=== PATIENT | male | born 1970 | race African-American/Black ===

== ENCOUNTER 2017-03-18 19:15 | Inpatient (IN) | payer OTHER ==
[~2017-03-18] VITALS: Ht 182.9 cm; Wt 102.8 kg
--- NOTE | ~2017-03-18 | 2DMMODE ---
[facility] [address] [place] [address] 2 D/M-MODE ECHOCARDIOGRAM Name: HALEY SCHILLING Room #: 209-P [facility] IN M.R.#: [id number] Admission: 03/18/17 Attend Phys: Luis Alfredo Horn, Discharge: Date of : 72 Date of Service: 03/19/17 0942 Report #: [id number] THIS REPORT FOR: //name// APPROVED REPORT Study performed: 03/19/2017 08:12:03 EXAM: Comprehensive 2D, Doppler, and color-flow Echocardiogram Patient Location: Echo lab Room #: 209 Status: routine BSA: 2.25 HR: 78 bpm BP: 128/79 mmHg Other Information Study Quality: Good Indications Diabetes CAD Hx stent, HLD, 2D Dimensions RVDd: 34.13 mm LVEF(%): 74.50 (>50%) IVSd: 12.07 (7-11mm) LVOT Diam: 20.67 (18-24mm) LVDd: 47.12 mm PWd: 10.74 (7-11mm) Ascending Ao: 27.53 (22-36mm) LVDs: 26.69 (25-40mm) Aortic Root: 34.14 mm Moreno's LVEF: 74.50 % Volumes Left Atrial Volume (Systole) Single Plane 4CH: 31.84 mL Single Plane 2CH: 58.67 mL LA ESV Index: 21.00 mL/m2 Aortic Valve AoV Peak Benjamín.: 1.52 m/s AO Peak Gr.: 9.20 mmHg LVOT Max P.80 mmHg LVOT Max V: 1.30 m/s EDDIE Vmax: 2.88 cm2 Mitral Valve E/A Ratio: 1.3 [facility] [place] [address] 2 D/M-MODE ECHOCARDIOGRAM Name: DEREK SCHILLINGOND Room #: 209-P [facility] .R.#: [id number] Admission: 03/18/17 Attend Phys: Luis Alfredo Horn, Discharge: Date of : 72 Date of Service: 03/19/17 0942 Report #: [id number] MV Decel. Time: 204.33 ms MV E Max Benjamín.: 0.96 m/s MV A Benjamín.: 0.73 m/s MV PHT: 59.25 ms IVRT: 55.36 ms Pulmonary Valve PV Peak Benjamín.: 1.11 m/s PV Peak Gr.: 4.94 mmHg Pulmonary Vein P Vein S: 0.41 m/s P Vein D: 0.51 m/s P Vein S/D Ratio: 0.80 Tricuspid Valve TR Peak Benjamín.: 1.37 m/s RAP Estimate: 5.00 mmHg TR Peak Gr.: 7.51 mmHg PA Pressure: 13.00 mmHg Left Ventricle Left ventricle is grossly normal size. There is normal LV segmental wall motion. There is normal left ventricular wall thickness. The left ventricular systolic function is normal. LVEF is 60-65%. The left ventricular diastolic function is normal. Right Ventricle The right ventricle is normal size. The right ventricular systolic function is normal. Atria The left atrium size is normal. The right atrium size is normal. Aortic Valve The aortic valve is normal in structure. No aortic regurgitation is present. There is no aortic valvular stenosis. Mitral Valve The mitral valve is normal in structure. Trace mitral regurgitation. No evidence of mitral valve stenosis. Tricuspid Valve The tricuspid valve is normal in structure. Trace tricuspid regurgitation.Estimated PAP 13 mmHg. Pulmonic Valve [facility] [address] [place] [address] 2 D/M-MODE ECHOCARDIOGRAM Name: HALEY SCHILLING Room #: 209-P [facility] M.R.#: [id number] Admission: 03/18/17 Attend Phys: Luis Alfredo Horn, Discharge: Date of : 72 Date of Service: 03/19/17 0942 Report #: [id number] The pulmonary valve is normal in structure. Trace pulmonic regurgitation. Great Vessels The aortic root is normal in size. IVC is normal in size and collapses >50% with inspiration. Pericardium There is no pericardial effusion. <Conclusion> 1. Normal echocardiogram with Doppler <ELECTRONICALLY SIGNED> By: Christopher Ng MD, FACC 03/19/17941 1 1 Christopher Ng MD, [facility] /INF
--- NOTE | ~2017-03-18 | EKG ---
[address] [place] [address] ELECTROCARDIOGRAM REPORT Name: HALEY SCHILLING Room #: 209-P [facility] IN M.R.#: [id number] Admission: 03/18/17 Attend Phys: Luis Alfredo Horn DO Discharge: Date of : 72 Report #: [id number] THIS REPORT FOR: //name// [facility] ED Test Date: 2017-03-18 Test Time: 19:28:27 Pat Name: HALEY SCHILLING Department: Room: 209 Gender: M [employer] Chair: [id number] : 1970 Requested By: Cathie Barrios Order Number: [id number] MD: Thomas Marie Measurements Intervals [place] Rate: 81 P: 33 WV: 199 QRS: 17 QRSD: 99 T: 26 QT: 356 QTc: 414 Interpretive Statements Sinus rhythm Probable left atrial enlargement ST elev, probable normal early repol pattern No previous ECG available for comparison Electronically Signed On 03-19-2017 7:29:48 CDT by Thomas Marie [email or web address] <ELECTRONICALLY SIGNED> By: Thomas Marie MD 03/19/17 0729 D: [birth year]1927 27 Thomas Marie MD /DAMIAN
[2017-03-18 19:17] VITALS: BP 136/93
[2017-03-18 19:49] LABS: ABSOLUTE NEUTROPHILS 6.1 thou/uL (1.4-8.2); BASOPHILS 0.6 % (0.0-2.0); EOSINOPHILS 0.3 % (0.0-3.0); HEMATOCRIT 48.7 % (42.0-52.0); HEMOGLOBIN 16.5 gm/dL (14.0-18.0); LYMPHOCYTES 20.2 % (24.0-44.0); MCH 30.8 pg (26.0-34.0); MCHC 33.9 g/dL (28.0-37.0); MCV 90.8 fL (80.0-100.0); MONOCYTES 5.7 % (1.0-8.0); PLATELET COUNT 298 thou/uL (150-400); POLYS 73.2 % (36.0-66.0); RBC 5.36 mil/uL (4.50-6.00); RDW 15.2 % (10.5-14.5); WBC 8.3 thou/uL (4.0-11.0)
[2017-03-18 19:57] LABS: MANUAL DIFF NO
[2017-03-18 20:00] LABS: ANION GAP 7 mmol/L (7-16); BUN 12 mg/dL (7-18); CALCIUM 9.4 mg/dL (8.5-10.1); CHLORIDE 103 mmol/L (98-107); CO2 24 mmol/L (21-32); CREATININE 1.4 mg/dL (0.7-1.3); GLUCOSE 170 mg/dL (74-106); SODIUM 134 mmol/L (136-145)
[2017-03-18 20:09] LABS: ALBUMIN 3.7 g/dL (3.4-5.0); ALKALINE PHOSPHATASE 121 U/L (46-116); SGOT 13 U/L (15-37); SGPT 17 U/L (30-65); TOTAL BILIRUBIN 0.3 mg/dL (<0.1-1.0); TOTAL PROTEIN 7.6 g/dL (6.4-8.2); TROPONIN-I < 0.04 ng/mL (<0.06)
[2017-03-18 21:39] VITALS: BP 110/78
[2017-03-18 21:55] VITALS: BP 112/76
[2017-03-19] VITALS (7 sets, daily range): BP systolic 113–128; BP diastolic 70–81
[2017-03-19 10:51] LABS: CHOLESTEROL 137 mg/dL (<200); HDL CHOLESTEROL 35 mg/dL (>40); LDL CHOLESTEROL 91 mg/dL (<100); TC:HDL 3.9 Ratio (Not establshd); TRIGLYCERIDE 56 mg/dL (<150); VLDL 11 mg/dL (<40)
[2017-03-19] MEDS ORDERED: ASA5UEC PO (16:44)
[2017-03-19] MEDS ORDERED: COZAAR 25 MG TA25 M1 PO (16:44)
[2017-03-19] MEDS ORDERED: ATORVASTATIN CA40 MG PO (16:44)
[2017-03-20 05:12] LABS: GLYCOHEMOGLOBIN (HGB A1C) 9.8 % (4.8-5.6)
== END 2017-03-19 17:59 | disposition home or self-care (01) | DRG 313 ==
LOC: ER 19:15 → EROBS 20:43 → 2N 20:43
PROVIDERS: Nurse Practitioner; Nurse Practitioner Gerontology; Physician Assistant
DX: R07.89 Other chest pain (principal); I25.10 Atherosclerotic heart disease of native coronary artery without angina pectoris; E11.65 Type 2 diabetes mellitus with hyperglycemia; E78.5 Hyperlipidemia, unspecified; F17.210 Nicotine dependence, cigarettes, uncomplicated; E11.9 Type 2 diabetes mellitus without complications; I10 Essential (primary) hypertension; Z95.5 Presence of coronary angioplasty implant and graft; Z71.6 Tobacco abuse counseling; Z23 Encounter for immunization
CPT/HCPCS: 10081